=== PATIENT | female | born 2005 | race Caucasian/White ===

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

== ENCOUNTER 2023-08-17 11:14 | Emergency (ER) | payer OTHER ==
[2023-08-17 11:57] VITALS: TEMP 97
[2023-08-17 12:17] LABS: Glucose,Whole Blood 88 mg/dL (70-110)
[2023-08-17 12:22] VITALS: PULSE 86; RESP 18
[2023-08-17] MEDS ORDERED: SODIUM CHLORIDE 0.9% 1,000 ML IV ONE (12:46)
[2023-08-17 13:06] LABS: Basophils % (A) 0 %; Eosinophils % (A) 0 %; HGB 11.3 gm/dL (11.4-16.0); Lymphocytes # (A) 1.8 k/uL (1.0-4.8); Lymphocytes % (A) 13 %; MCHC 34.4 g/dL (31.0-37.0); MCV 87.2 fL (80.0-100.0); Mean Platelet Volume 8.4; Monocytes # (A) 0.5 k/uL (0-1.0); Monocytes % (A) 4 %; Neutrophils # (A) 11.2 k/uL (1.3-7.7); Neutrophils % (A) 81 %; Platelet Count 250 k/uL (150-450); RBC 3.78 m/uL (3.80-5.40); RDW 13.2 % (11.5-15.5); WBC 13.9 k/uL (4.0-11.0)
[2023-08-17 13:19] LABS: ALT 26 U/L (4-34); AST 32 U/L (14-36); African American GFR (CKD) >90 (>60 ml/min/1.73 sqM); Albumin 3.4 g/dL (3.5-5.0); Alkaline Phosphatase 157 U/L (38-126); Anion Gap 12 mmol/L; Blood Urea Nitrogen 9 mg/dL (7-17); Calcium 8.8 mg/dL (8.4-10.2); Carbon Dioxide 19 mmol/L (22-30); Chloride 105 mmol/L (98-107); Glucose 80 mg/dL (74-99); Non-African American GFR(CKD) >90 (>60 ml/min/1.73 sqM); Potassium 4.2 mmol/L (3.5-5.1); Sodium 136 mmol/L (137-145); Total Bilirubin 0.4 mg/dL (0.2-1.3); Total Protein 6.6 g/dL (6.3-8.2)
--- NOTE | 2023-08-17 13:36 | ED ---
General Adult HPI - General Chief complaint: Headache Stated complaint: 30wks preg-vision loss Time Seen by Provider: 08/17/23 12:29 Source: patient, RN notes reviewed, old records reviewed Mode of arrival: ambulatory Limitations: no limitations - History of Present Illness Initial comments: 18-year-old female presenting for evaluation of headache, nausea vomiting. Patient is currently approximately 30 weeks . She's had no complicating features of this . She is feeling the baby move. Patient does report some blurred vision and states she's had symptoms very similar to this with the with previous and has had it several times during this . - Related Data Home Medications Medication Instructions Recorded Confirmed Aspirin [Adult Low Dose Aspirin EC] 81 mg PO DAILY 12/03/21 02/17/22 Pnv No.95/Ferrous Fum/Folic AC 1 tab PO DAILY 12/03/21 02/17/22 [ Multivitamin Tablet] Allergies Allergy/AdvReac Type Severity Reaction Status Date / Time No Known Allergies Allergy Verified 08/17/23 11:34 Review of Systems ROS Statement: Those systems with pertinent positive or pertinent negative responses have been documented in the HPI. ROS Other: All systems not noted in ROS Statement are negative. Past Medical History Past Medical History: No Reported History History of Any Multi-Drug Resistant Organisms: None Reported Past Surgical History: No Surgical Hx Reported Past Anesthesia/Blood Transfusion Reactions: No Reported Reaction Past Psychological History: No Psychological Hx Reported Smoking Status: Never smoker Past Alcohol Use History: None Reported Past Drug Use History: None Reported - Past Family History Mother Family Medical History: No Reported History General Exam Limitations: no limitations General appearance: alert, in no apparent distress Head exam: Present: atraumatic, normocephalic Eye exam: Present: normal appearance, PERRL ENT exam: Present: normal exam Neck exam: Present: normal inspection Respiratory exam: Present: normal lung sounds bilaterally. Absent: respiratory distress, wheezes Cardiovascular Exam: Present: regular rate, normal rhythm GI/Abdominal exam: Present: soft. Absent: distended, tenderness Extremities exam: Present: normal inspection, normal capillary refill. Absent: pedal edema Neurological exam: Present: alert, oriented X3, CN II-XII intact. Absent: motor sensory deficit Psychiatric exam: Present: normal affect, normal mood Skin exam: Present: warm, dry, intact. Absent: cyanosis, diaphoretic Course Vital Signs 08/17/23 08/17/23 11:34 12:10 Temperature 97 F L Pulse Rate 84 86 Respiratory 16 18 Rate Blood Pressure 108/62 107/62 O2 Sat by Pulse 97 96 Oximetry - Reevaluation(s) Reevaluation #1: 08/17/23 14:48 Patient states blurry vision has resolved. Headache is improved. Patient overall feeling better she is able to eat in the emergency department. Medical Decision Making - Medical Decision Making Was pt. sent in by a medical professional or institution (, ANGÉLICA, SENIOR ANALYST DEVELOPER, urgent care, hospital, or group home...) When possible be specific @ -No Did you speak to anyone other than the patient for history (EMS, parent, family, police, friend...)? What history was obtained from this source @ -No Did you review nursing and triage notes (agree or disagree)? Why? @ -I reviewed and agree with nursing and triage notes Were old charts reviewed (outside hosp., previous admission, EMS record, old EKG, old radiological studies, urgent care reports/EKG's, group home records)? Report findings @ -No old charts were reviewed Differential Diagnosis (chest pain, altered mental status, abdominal pain women, abdominal pain men, vaginal bleeding, weakness, fever, dyspnea, syncope, headache, dizziness, GI bleed, back pain, seizure, CVA, palpatations, mental health, musculoskeletal)? @ Differential Headache: Migraine, tension, cluster, carbon monoxide, central venous thrombosis, pension karma temporal arteritis, acute closure glaucoma, intercranial hemorrhage, mastoiditis, sinusitis, head injury, this is not meant to be an all-inclusive list. EKG interpreted by me (3pts min.). @ -As above X-rays interpreted by me (1pt min.). @ -None done CT interpreted by me (1pt min.). @ -None done U/S interpreted by me (1pt. min.). @ -None done What testing was considered but not performed or refused? (CT, X-rays, U/S, labs)? Why? @ -None What meds were considered but not given or refused? Why? @ -None Did you discuss the management of the patient with other professionals (professionals i.e. , ANGÉLICA, SENIOR ANALYST DEVELOPER, lab, RT, psych nurse, clinical social work aide, mechanic driver, teacher, compliance officer, mental health case manager)? Give summary @ -No Was smoking cessation discussed for >3mins.? @ -No Was critical care preformed (if so, how long)? @ -No Were there social determinants of health that impacted care today? How? (Homelessness, low income, unemployed, alcoholism, drug addiction, transportation, low edu. Level, literacy, decrease access to med. care, prison, rehab)? @ -No Was there de-escalation of care discussed even if they declined (Discuss DNR or withdrawal of care, Hospice)? DNR status @ -No What co-morbidities impacted this encounter? (DM, HTN, Smoking, COPD, CAD, Cancer, CVA, ARF, Chemo, Hep., AIDS, mental health diagnosis, sleep apnea, morbid obesity)? @ -None Was patient admitted / discharged? Hospital course, mention meds given and route, prescriptions, significant lab abnormalities, going to OR and other pertinent info. @ -18-year-old female with headache, nausea vomiting. Patient afebrile with stable vitals. Patient had taken Tylenol prior to arrival. Given additional dose emergency department as well as IV fluids. She has a mild leukocytosis at 13. Patient states she's had several episodes throughout this of headache and nausea vomiting. Other laboratory testing is unremarkable. Viral swab negative. Undiagnosed new problem with uncertain prognosis? @ -No Drug Therapy requiring intensive monitoring for toxicity (Heparin, Nitro, Insulin, Cardizem)? @ -No Were any procedures done? @ -No Diagnosis/symptom? @ -[Headache Acute, or Chronic, or Acute on Chronic? @ -[Acute on chronic Uncomplicated (without systemic symptoms) or Complicated (systemic symptoms)? @ -default Side effects of treatment? @ -No Exacerbation, Progression, or Severe Exacerbation? @ -No Poses a threat to life or bodily function? How? (Chest pain, [place], [place], pneumonia, PE, COPD, DKA, ARF, appy, cholecystitis, CVA, Diverticulitis, Homicidal, Suicidal, threat to staff... and all critical care pts) @ -Low risk at this time - Lab Data Result diagrams: 08/17/23 12:59 08/17/23 12:59 Lab Results 01/05/24 01/05/24 01/05/24 Range/Units 12:16 12:59 12:59 WBC 13.9 H (4.0-11.0) k/uL RBC 3.78 L (3.80-5.40) m/uL Hgb 11.3 L (11.4-16.0) gm/dL Hct 33.0 L (34.0-46.0) % MCV 87.2 (80.0-100.0) fL MCH 30.0 (25.0-35.0) pg MCHC 34.4 (31.0-37.0) g/dL RDW 13.2 (11.5-15.5) % Plt Count 250 (150-450) k/uL MPV 8.4 Neutrophils % 81 % Lymphocytes % 13 % Monocytes % 4 % Eosinophils % 0 % Basophils % 0 % Neutrophils # 11.2 H (1.3-7.7) k/uL Lymphocytes # 1.8 (1.0-4.8) k/uL Monocytes # 0.5 (0-1.0) k/uL Eosinophils # 0.0 (0-0.7) k/uL Basophils # 0.0 (0-0.2) k/uL Sodium (137-145) mmol/L Potassium (3.5-5.1) mmol/L Chloride (98-107) mmol/L Carbon Dioxide (22-30) mmol/L Anion Gap mmol/L BUN (7-17) mg/dL Creatinine (0.52-1.04) mg/dL Est GFR (CKD-EPI)AfAm (>60 ml/min/1.73 sqM) Est GFR (CKD-EPI)NonAf (>60 ml/min/1.73 sqM) Glucose (74-99) mg/dL POC Glucose (mg/dL) 88 (70-110) mg/dL POC Glu Net Fisher ID Liseth Nettles Calcium (8.4-10.2) mg/dL Total Bilirubin (0.2-1.3) mg/dL AST (14-36) U/L ALT (4-34) U/L Alkaline Phosphatase (38-126) U/L Total Protein (6.3-8.2) g/dL Albumin (3.5-5.0) g/dL Urine Color Colorless Urine Appearance Clear (Clear) Urine pH 7.0 (5.0-8.0) Ur Specific [place] 1.008 (1.001-1.035) Urine Protein Negative (Negative) Urine Glucose (UA) Negative (Negative) Urine Ketones Trace H (Negative) Urine Blood Negative (Negative) Urine Nitrite Negative (Negative) Urine Bilirubin Negative (Negative) Urine Urobilinogen <2.0 (<2.0) mg/dL Ur Leukocyte Esterase Small H (Negative) Urine RBC 1 (0-5) /hpf Urine WBC 2 (0-5) /hpf Ur Squamous Epith Cells 4 (0-4) /hpf Urine Bacteria Occasional H (None) /hpf Urine Mucus Occasional H (None) /hpf Urine Yeast (Budding) Occasional H (None) /hpf Influenza Type A (PCR) (Not Detectd) Influenza Type B (PCR) (Not Detectd) RSV (PCR) (Not Detectd) SARS-CoV-2 (PCR) (Not Detectd) 08/17/23 08/17/23 Range/Units 12:59 12:59 WBC (4.0-11.0) k/uL RBC (3.80-5.40) m/uL Hgb (11.4-16.0) gm/dL Hct (34.0-46.0) % MCV (80.0-100.0) fL MCH (25.0-35.0) pg MCHC (31.0-37.0) g/dL RDW (11.5-15.5) % Plt Count (150-450) k/uL MPV Neutrophils % % Lymphocytes % % Monocytes % % Eosinophils % % Basophils % % Neutrophils # (1.3-7.7) k/uL Lymphocytes # (1.0-4.8) k/uL Monocytes # (0-1.0) k/uL Eosinophils # (0-0.7) k/uL Basophils # (0-0.2) k/uL Sodium 136 L (137-145) mmol/L Potassium 4.2 (3.5-5.1) mmol/L Chloride 105 (98-107) mmol/L Carbon Dioxide 19 L (22-30) mmol/L Anion Gap 12 mmol/L BUN 9 (7-17) mg/dL Creatinine 0.30 L (0.52-1.04) mg/dL Est GFR (CKD-EPI)AfAm >90 (>60 ml/min/1.73 sqM) Est GFR (CKD-EPI)NonAf >90 (>60 ml/min/1.73 sqM) Glucose 80 (74-99) mg/dL POC Glucose (mg/dL) (70-110) mg/dL POC Glu Net Fisher ID Calcium 8.8 (8.4-10.2) mg/dL Total Bilirubin 0.4 (0.2-1.3) mg/dL AST 32 (14-36) U/L ALT 26 (4-34) U/L Alkaline Phosphatase 157 H (38-126) U/L Total Protein 6.6 (6.3-8.2) g/dL Albumin 3.4 L (3.5-5.0) g/dL Urine Color Urine Appearance (Clear) Urine pH (5.0-8.0) Ur Specific [place] (1.001-1.035) Urine Protein (Negative) Urine Glucose (UA) (Negative) Urine Ketones (Negative) Urine Blood (Negative) Urine Nitrite (Negative) Urine Bilirubin (Negative) Urine Urobilinogen (<2.0) mg/dL Ur Leukocyte Esterase (Negative) Urine RBC (0-5) /hpf Urine WBC (0-5) /hpf Ur Squamous Epith Cells (0-4) /hpf Urine Bacteria (None) /hpf Urine Mucus (None) /hpf Urine Yeast (Budding) (None) /hpf Influenza Type A (PCR) Not Detected (Not Detectd) Influenza Type B (PCR) Not Detected (Not Detectd) RSV (PCR) Not Detected (Not Detectd) SARS-CoV-2 (PCR) Not Detected (Not Detectd) Disposition Clinical Impression: Headache Disposition: HOME SELF-CARE Condition: Good Instructions (If sedation given, give patient instructions): Acute Headache (ED) Is patient prescribed a controlled substance at d/c from ED?: No Referrals: None,Stated [Primary Care Provider] - 1-2 days Renetta Felix MD [STAFF PHYSICIAN] - 1-2 days Time of Disposition: 14:47
[2023-08-17] MEDS ORDERED: ACETAMINOPHEN TAB 325 MG TAB PO STA (14:06)
[2023-08-17 14:07] LABS: Appearance,Urine Clear (Clear); Bacteria,Urine Occasional /hpf; Bilirubin,Urine Negative (Negative); Blood,Urine Negative (Negative); Budding Yeast,Urine Occasional /hpf; Color,Urine Colorless; Glucose,Urine (UA) Negative (Negative); Ketones,Urine Trace (Negative); Leukocyte Esterase,Urine Small (Negative); Mucus,Urine Occasional /hpf; Nitrite,Urine Negative (Negative); Protein,Urine Negative (Negative); RBC,Urine 1 /hpf (0-5); Specific Gravity,Urine 1.008 (1.001-1.035); Squamous Epithelial Cell,Urine 4 /hpf (0-4); Urobilinogen,Urine <2.0 mg/dL (<2.0); WBC,Urine 2 /hpf (0-5)
[2023-08-17 15:33] VITALS: BP 119/69
== END 2023-08-17 15:18 | disposition home or self-care (01) ==
LOC: EC 11:14
DX: O26.893 Other specified pregnancy related conditions, third trimester (principal); R51.9 Headache, unspecified; O99.113 Other diseases of the blood and blood-forming organs and certain disorders involving the immune mechanism complicating pregnancy, third trimester; D72.829 Elevated white blood cell count, unspecified; Z20.822 Contact with and (suspected) exposure to COVID-19; Z3A.30 30 weeks gestation of pregnancy
CPT/HCPCS: 36415; 80053; 81001; 85025; 87636; 96360; 99284

== ENCOUNTER 2023-10-22 06:00 | Inpatient (IN) | payer OTHER ==
[2023-10-22] MEDS ORDERED: OXYTOCIN 10 UNIT/ML 1 ML VIAL IM PRN (06:20)
[2023-10-22] MEDS ORDERED: CARBOPROST TROMETHAMINE 250 MCG/ML 1 ML AMP IM PRN (06:20)
[2023-10-22] MEDS ORDERED: TRANEXAMIC 1,000 MG/100ML-NACL 1,000 MG in EMPTY BAG 1 BAG IV PRN (06:20)
[2023-10-22] MEDS ORDERED: METHYLERGONOVINE 0.2 MG/ML 1 ML AMP IM PRN (06:20)
[2023-10-22] MEDS ORDERED: miSOPROStoL 200 MCG TAB PO PRN (06:20)
[2023-10-22] MEDS ORDERED: TERBUTALINE 1 MG/ML VIAL SQ PRN (06:20)
[2023-10-22] MEDS ORDERED: LIDOCAINE 0.5% (PF) 5 MG/ML (50 ML SDV) SQ PRN (06:20)
[2023-10-22 06:30] VITALS: RESP 16
[2023-10-22] MEDS: LACTATED RINGERS 1,000 ML IV SCH (06:42)
[2023-10-22] MEDS: OXYTOCIN 30 UNITS/500 ML NS 30 UNIT in SALINE 1 500ML.BAG IV SCH (06:48)
[2023-10-22 07:05] LABS: Basophils % (A) 0 %; Eosinophils # (A) 0.1 k/uL (0-0.7); Eosinophils % (A) 1 %; HCT 30.6 % (34.0-46.0); HGB 10.1 gm/dL (11.4-16.0); Hypochromasia Slight; Lymphocytes # (A) 2.3 k/uL (1.0-4.8); Lymphocytes % (A) 28 %; MCH 26.7 pg (25.0-35.0); MCHC 32.8 g/dL (31.0-37.0); Mean Platelet Volume 9.2; Monocytes # (A) 0.5 k/uL (0-1.0); Monocytes % (A) 6 %; Neutrophils # (A) 5.2 k/uL (1.3-7.7); Neutrophils % (A) 62 %; Platelet Count 247 k/uL (150-450); Poikilocytosis Slight; RBC 3.77 m/uL (3.80-5.40); WBC 8.3 k/uL (4.0-11.0)
[2023-10-22 07:28] LABS: MCV 81.2 fL (80.0-100.0)
--- NOTE | 2023-10-22 09:31 | P.HPOB ---
History of Present Illness H&P Date: 10/22/23 Chief Complaint: Induction of labor Ms. Boyer is a 18 year old at 39 weeks and 1 day with EDC of 10/28/2023 by LMP consistent with 8 week US who presents for scheduled elective induction of labor. Her has been essentially uncomplicated. The fetus measured in the 33%ile at 32 week growth US. Obstetric history: 1 FTVD, complicated by GDM work-up: blood type O positive, antibody negative, rubella non-immune, VDRL non-reactive, HBsAg negative, HIV negative, HCV Ab negative, gonorrhea negative, chlamydia negative, 1 hour GTT within normal limits, GBS negative. Past Medical History Past Medical History: No Reported History History of Any Multi-Drug Resistant Organisms: None Reported Past Surgical History: No Surgical Hx Reported Past Anesthesia/Blood Transfusion Reactions: No Reported Reaction Past Psychological History: No Psychological Hx Reported Smoking Status: Never smoker Past Alcohol Use History: None Reported Past Drug Use History: None Reported - Past Family History Mother Family Medical History: No Reported History Medications and Allergies Home Medications Medication Instructions Recorded Confirmed Type Pnv No.95/Ferrous Fum/Folic AC 1 tab PO DAILY 12/03/21 10/22/23 History [ Multivitamin Tablet] Allergies Allergy/AdvReac Type Severity Reaction Status Date / Time No Known Allergies Allergy Verified 08/17/23 11:34 Exam Vital Signs Temp Pulse Resp BP Pulse Ox 10/22/23 06:19 96.6 F L 100 16 121/75 97 Intake and Output 10/21/23 10/22/23 10/22/23 22:59 06:59 14:59 Other: Weight 88.451 kg Focused physical exam is performed. This is a healthy-appearing in no apparent distress. Breathing is non-labored. Abdomen is gravid and non-tender. Cervical exam is 2 cm, 60 effacement, -3 station. AROM is undertaken with clear fluid noted. Extremities non-tender and non-edematous. heart tones are Category I and tocometer is graphing contractions every 2-4 minutes. Results Result Diagrams: 10/22/23 06:39 Abnormal Lab Results - Last 24 Hours (Table) 10/22/23 Range/Units 06:39 RBC 3.77 L (3.80-5.40) m/uL Hgb 10.1 L (11.4-16.0) gm/dL Hct 30.6 L (34.0-46.0) % Assessment and Plan Assessment: 18 year old at 39 weeks and 1 day presenting for elective induction of labor Plan: Admit, clear liquid diet, pitocin per protocol, continuous EFM and tocometer, close monitoring of patient. Anticipate vaginal delivery. Time with Patient: Less than 30
[2023-10-22] MEDS ORDERED: ROPIVACAINE 5 MG/ML 30 ML VIAL ONE (16:20)
[2023-10-22] MEDS ORDERED: fentaNYL (PF) 50 MCG/ML 5 ML AMP ONE (16:20)
[2023-10-22] MEDS ORDERED: SODIUM CHLORIDE 0.9% 250 ML BAG ONE (16:20)
[2023-10-22] MEDS ORDERED: LANOLIN CREAM 1 GM TUBE TOPICAL PRN (21:42)
[2023-10-22] MEDS ORDERED: ZOLPIDEM 5 MG TAB PO PRN (21:42)
[2023-10-22] MEDS ORDERED: HYDROCORTISONE 2.5% RECTAL CREAM 30 GM TUBE RECTAL PRN (21:42)
[2023-10-22] MEDS ORDERED: diphenhydrAMINE 50 MG/ML 1 ML VIAL IVP PRN ×2 (21:42)
[2023-10-22] MEDS ORDERED: SIMETHICONE 80 MG CHEWABLE PO PRN (21:42)
[2023-10-22] MEDS ORDERED: diphenhydrAMINE 50 MG CAP PO PRN (21:42)
[2023-10-22] MEDS ORDERED: diphenhydrAMINE 25 MG CAP PO PRN (21:42)
[2023-10-22] MEDS ORDERED: BENZOCAINE/MENTHOL SPRAY 1 GM/SPRAY AEROSOL TOPICAL PRN (21:42)
--- NOTE | 2023-10-22 21:42 | P.PROBDLV ---
Vaginal Delivery Note - . Vaginal Delivery Note: DATE OF SERVICE: 10/22/2023 PROCEDURE: Normal Vaginal Delivery ATTENDING: Dr. Renetta Felix MD ESTIMATED BLOOD LOSS: 300 mL FINDINGS: VFI, Apgars 9/9. Weight 7 pounds and 3 ounces (3260 grams) PROCEDURE: Ms. Boyer is a 18 year old at 39 weeks and 1 day presenting to labor and delivery for elective induction of labor. The has been uncomplicated. For further details, please review the admitting H&P. Pitocin was titrated per protocol. AROM was performed at 722 revealing clear amniotic fluid. She received epidural anesthesia per her request. The patient was completely dilated at 2105. She pushed very effectively with Category II heart tones. A viable female was delivered over an intact perineum at 2122. The was placed on the maternal abdomen and bulb suctioned. The was noted to be spontaneously crying. Cord was clamped and cut after a 30-second delay. The was handed off to the pediatric team. Placenta was delivered whole with gentle cord traction at 2127. Oxytocin was started to facilitate uterine tone. Uterine fundus was found to be firm and below the umbilicus upon fundal massage. Thorough examination of the cervix, vagina, periurethral area, and perineum revealed no lacerations. The patient is stable and allowed to begin the bonding process.
[2023-10-22] MEDS: ROPIVACAINE 225 MG, fentaNYL (PF). 450 MCG in SODIUM CHLORIDE 0.9% 171 ML EPIDURAL ONE (22:30)
[2023-10-23 06:52] LABS: Basophils % (A) 0 %; Eosinophils % (A) 0 %; HCT 33.5 % (34.0-46.0); HGB 10.8 gm/dL (11.4-16.0); Hypochromasia Slight; Lymphocytes # (A) 2.1 k/uL (1.0-4.8); Lymphocytes % (A) 17 %; MCH 26.4 pg (25.0-35.0); MCHC 32.1 g/dL (31.0-37.0); MCV 82.2 fL (80.0-100.0); Mean Platelet Volume 9.5; Monocytes # (A) 0.6 k/uL (0-1.0); Monocytes % (A) 5 %; Neutrophils # (A) 9.3 k/uL (1.3-7.7); Neutrophils % (A) 75 %; Platelet Count 235 k/uL (150-450); Poikilocytosis Slight; RBC 4.07 m/uL (3.80-5.40); RDW 14.1 % (11.5-15.5); WBC 12.5 k/uL (4.0-11.0)
[2023-10-23] MEDS: IBUPROFEN 600 MG TAB PO PRN (07:42)
[2023-10-23] MEDS: SENNOSIDES-DOCUSATE SODIUM 1 EACH TAB PO SCH (07:42)
--- NOTE | 2023-10-23 08:40 | P.DS ---
Providers Date of admission: 10/22/23 06:06 Expected date of discharge: 10/23/23 Attending physician: Renetta Felix MD Primary care physician: Stated None Hospital Course: Ms. Boyer is a 18 year old now PPD#1 s/p normal vaginal delivery after elective induction of labor at 39 weeks and 1 day. She is doing well this morning and desires discharge home. The patient is doing well this morning and had no acute events overnight. She has no complaints this morning. She reports minimal lochia, passing flatus, voiding without difficulty, ambulating, and eating/drinking without nausea or vomiting. Infant doing well at bedside. She denies chest pain, shortness of breathing, fevers, or chills overnight. She denies pain or swelling in the legs. restrictions are reviewed with the patient including pelvic rest for 6 weeks. The patient is encouraged to call the office if she experiences any heavy bleeding, foul-smelling discharge, breast complaints, or any if she has any other concerns. She will follow up in t office in 6 weeks for postoperative exam. She requests Tylenol sent to her pharmacy for pain. All questions are answered. Assessment: 18 year old now PPD#1 s/p normal vaginal delivery Patient Condition at Discharge: Good Plan - Discharge Summary New Discharge Prescriptions: New Acetaminophen Tab [Tylenol] 650 mg PO Q6H PRN #30 tab PRN Reason: Mild Pain (Scale 1 To 3) No Action Pnv No.95/Ferrous Fum/Folic AC [ Multivitamin Tablet] 1 tab PO DAILY Discharge Medication List Pnv No.95/Ferrous Fum/Folic AC [ Multivitamin Tablet] 1 tab PO DAILY 12/03/21 [History] Acetaminophen Tab [Tylenol] 650 mg PO Q6H PRN #30 tab 10/23/23 [Rx] Follow up Appointment(s)/Referral(s): Renetta Felix MD [STAFF PHYSICIAN] - 6 Weeks Activity/Diet/Wound Care/Special Instructions: Instructions 1. Do not begin any exercise program for 3 weeks. 2. Do not resume sexual relations for 6 weeks or longer if uncomfortable. 3. You may take tub baths or showers at any time. 4. You may use tampons if desired after 6 weeks. 5. Keep any areas repaired with stitches clean and dry. 6. If you are not nursing, wear a good fitting, supportive bra during the day and limit fluid intake for at least 1 week to prevent breast engorgement. 7. Call the office, , within the next week to make appointment for your 6 week checkup if it has not already been made. 8. Report any of the following occurrences to the doctor promptly: a. Heavy, excessive bleeding b. Chills, fever c. Burning or frequency of urination d. Pain or redness and breasts if nursing e. Increasing pain or swelling of vulva (stitches). In addition to the above instructions, the following additional should be followed: 1. No heavy lifting or straining (exercising) until after 6 week checkup. 2. Keep abdominal incision clean and dry: You may wear a dressing if more comfortable. 3. Make office appointment for 2 weeks after delivery date. Discharge Disposition: HOME SELF-CARE
[2023-10-23] MEDS: ACETAMINOPHEN TAB 325 MG TAB PO PRN (13:39)
[2023-10-23 17:00] VITALS: BP 107/71; PULSE 71; TEMP 98.5
== END 2023-10-23 22:30 | disposition home or self-care (01) | DRG 560 ==
LOC: 4FBP 06:06
PROVIDERS: ADMIT Obstetrics & Gynecology; ATTEND Obstetrics & Gynecology
PROC: 3E033VJ Introduction of Other Hormone into Peripheral Vein, Percutaneous Approach (ICD-10-PCS; principal; 2023-10-22)
PROC: 10907ZC Drainage of Amniotic Fluid, Therapeutic from Products of Conception, Via Natural or Artificial Opening (ICD-10-PCS; principal; 2023-10-22)
PROC: 10E0XZZ Delivery of Products of Conception, External Approach (ICD-10-PCS; principal; 2023-10-22)
DX: O80 Encounter for full-term uncomplicated delivery (principal); Z3A.39 39 weeks gestation of pregnancy; Z37.0 Single live birth; Z86.32 Personal history of gestational diabetes
CPT/HCPCS: 85025; 86850; 86900; 86901

== ENCOUNTER 2024-04-17 14:00 | Emergency (ER) | payer OTHER ==
[2024-04-17 14:07] VITALS: RESP 18; TEMP 97.7
--- NOTE | 2024-04-17 15:08 | ED ---
General Adult HPI - General Chief complaint: Neuro Symptoms/Deficit Stated complaint: R eye issue, R hand numbness Time Seen by Provider: 04/17/24 14:20 Source: patient, RN notes reviewed Mode of arrival: ambulatory Limitations: no limitations - History of Present Illness Initial comments: 18-year-old female with a past medical history of POTS presents emergency department chief complaint of headache, blurry vision, intermittent paresthesias. Patient states that symptoms began this morning and she will experience a headache accompanied by visual changes and numbness and tingling of her right upper extremity. Patient states that she experienced these type of symptoms during her however symptoms resolved after giving in October. She denies visiting with a neurologist for the symptoms. She denies chest pain, shortness of breath, dizziness, lightheadedness. States that she feels nauseous. Denies previous medical history of DVT, PE, blood clotting disorders, recent prolonged travel, recent surgeries, estrogen use. - Related Data Home Medications Medication Instructions Recorded Confirmed Pnv No.95/Ferrous Fum/Folic AC 1 tab PO DAILY 12/03/21 10/22/23 [ Multivitamin Tablet] Previous Rx's Medication Instructions Recorded Acetaminophen Tab [Tylenol] 650 mg PO Q6H PRN #30 tab 10/23/23 Ketorolac [Toradol] 10 mg PO Q8HR #15 tab 04/17/24 Allergies Allergy/AdvReac Type Severity Reaction Status Date / Time No Known Allergies Allergy Verified 04/17/24 14:07 Review of Systems ROS Statement: Those systems with pertinent positive or pertinent negative responses have been documented in the HPI. ROS Other: All systems not noted in ROS Statement are negative. Past Medical History Past Medical History: No Reported History Additional Past Medical History / Comment(s): POTS History of Any Multi-Drug Resistant Organisms: None Reported Past Surgical History: No Surgical Hx Reported Past Anesthesia/Blood Transfusion Reactions: No Reported Reaction Past Psychological History: No Psychological Hx Reported Smoking Status: Never smoker Past Alcohol Use History: None Reported Past Drug Use History: None Reported - Past Family History Mother Family Medical History: No Reported History General Exam Limitations: no limitations General appearance: alert, in no apparent distress Head exam: Present: atraumatic, normocephalic, normal inspection Eye exam: Present: normal appearance, PERRL, EOMI. Absent: scleral icterus, conjunctival injection, periorbital swelling ENT exam: Present: normal exam, mucous membranes moist Neck exam: Present: normal inspection. Absent: tenderness, meningismus, lymphadenopathy Respiratory exam: Present: normal lung sounds bilaterally. Absent: respiratory distress, wheezes, rales, rhonchi, stridor Cardiovascular Exam: Present: regular rate, normal rhythm, normal heart sounds. Absent: systolic murmur, diastolic murmur, rubs, gallop, clicks GI/Abdominal exam: Present: soft, normal bowel sounds. Absent: distended, tenderness, guarding, rebound, rigid Extremities exam: Present: normal inspection, full ROM, normal capillary refill. Absent: tenderness, pedal edema, joint swelling, calf tenderness Back exam: Present: normal inspection Neurological exam: Present: alert, oriented X3, CN II-XII intact Skin exam: Present: warm, dry, intact, normal color. Absent: rash Course Vital Signs 04/17/24 04/17/24 14:03 15:06 Temperature 97.7 F Pulse Rate 84 81 Respiratory 18 18 Rate Blood Pressure 112/73 111/64 O2 Sat by Pulse 98 98 Oximetry Medical Decision Making - Medical Decision Making Was pt. sent in by a medical professional or institution (, PA, SELLING SPECIALIST, urgent care, hospital, or fdc...) When possible be specific @ -No Did you speak to anyone other than the patient for history (EMS, parent, family, police, friend...)? What history was obtained from this source @ -No Did you review nursing and triage notes (agree or disagree)? Why? @ -I reviewed and agree with nursing and triage notes Were old charts reviewed (outside hosp., previous admission, EMS record, old EKG, old radiological studies, urgent care reports/EKG's, fdc records)? Report findings @ -No old charts were reviewed Differential Diagnosis (chest pain, altered mental status, abdominal pain women, abdominal pain men, vaginal bleeding, weakness, fever, dyspnea, syncope, headache, dizziness, GI bleed, back pain, seizure, CVA, palpatations, mental h ealth, musculoskeletal)? @ -Differential Headache: Migraine, tension, cluster, carbon monoxide, central venous thrombosis, pension karma temporal arteritis, acute closure glaucoma, intercranial hemorrhage, mastoiditis, sinusitis, head injury, this is not meant to be an all-inclusive list. EKG interpreted by me (3pts min.). @ -None X-rays interpreted by me (1pt min.). @ -None done CT interpreted by me (1pt min.). @ -CT of the brain without contrast no acute cranial abnormality noted. U/S interpreted by me (1pt. min.). @ -None done What testing was considered but not performed or refused? (CT, X-rays, U/S, labs)? Why? @ -None What meds were considered but not given or refused? Why? @ -None Did you discuss the management of the patient with other professionals (professionals i.e. DrTyler, PA, SELLING SPECIALIST, lab, RT, psych nurse, director social service, shoe repairer, teacher, botanical technical officer, correctional case manager)? Give summary @ -No Was smoking cessation discussed for >3mins.? @ -No Was critical care preformed (if so, how long)? @ -No Were there social determinants of health that impacted care today? How? (Homelessness, low income, unemployed, alcoholism, drug addiction, transportation, low edu. Level, literacy, decrease access to med. care, alf, rehab)? @ -No Was there de-escalation of care discussed even if they declined (Discuss DNR or withdrawal of care, Hospice)? DNR status @ -No What co-morbidities impacted this encounter? (DM, HTN, Smoking, COPD, CAD, Cancer, CVA, ARF, Chemo, Hep., AIDS, mental health diagnosis, sleep apnea, morbid obesity)? @ -None Was patient admitted / discharged? Hospital course, mention meds given and route, prescriptions, significant lab abnormalities, going to OR and other pertinent info. @ -18-year-old female with headache and neurological symptoms. On physical examination patient is resting comfortably no signs acute distress, neurological examination no deficits. She is provided with fluids and Tylenol pending labs and CT imaging. Patient did agree with this plan. CBC, CMP no acute findings. Urinalysis no signs of infection, hCG negative. On reevaluation, patient states that headache his still persistent is provided with a dose of Toradol and patient states that she would like to be discharged at this time. Recommend that she is follows up with her primary care provider for further evaluation. She is provided with a prescription for Toradol to take as needed for intermittent migraine relief. All questions answered at bedside and strict return parameters discussed with the patient she is verbalized understanding. Case discussed with Dr. Xiao Undiagnosed new problem with uncertain prognosis? @ -No Drug Therapy requiring intensive monitoring for toxicity (Heparin, Nitro, Insulin, Cardizem)? @ -No Were any procedures done? @ -No Diagnosis/symptom? @ -migraine headache Acute, or Chronic, or Acute on Chronic? @ -Acute Uncomplicated (without systemic symptoms) or Complicated (systemic symptoms)? @ -Uncomplicated Side effects of treatment? @ -No Exacerbation, Progression, or Severe Exacerbation? @ -No Poses a threat to life or bodily function? How? (Chest pain, USA, NM, pneumonia, PE, COPD, DKA, ARF, appy, cholecystitis, CVA, Diverticulitis, Homicidal, Suicidal, threat to staff... and all critical care pts) @ -No - Lab Data Result diagrams: 04/17/24 15:31 04/17/24 15:31 Lab Results 04/17/24 04/17/24 04/17/24 Range/Units 15:31 15:31 15:31 WBC 12.7 H (4.0-11.0) k/uL RBC 4.67 (3.80-5.40) m/uL Hgb 13.2 (11.4-16.0) gm/dL Hct 40.0 (34.0-46.0) % MCV 85.7 (80.0-100.0) fL MCH 28.3 (25.0-35.0) pg MCHC 33.1 (31.0-37.0) g/dL RDW 12.8 (11.5-15.5) % Plt Count 276 (150-450) k/uL MPV 8.5 Neutrophils % 77 % Lymphocytes % 17 % Monocytes % 4 % Eosinophils % 0 % Basophils % 0 % Neutrophils # 9.8 H (1.3-7.7) k/uL Lymphocytes # 2.1 (1.0-4.8) k/uL Monocytes # 0.5 (0-1.0) k/uL Eosinophils # 0.0 (0-0.7) k/uL Basophils # 0.0 (0-0.2) k/uL Sodium (137-145) mmol/L Potassium (3.5-5.1) mmol/L Chloride (98-107) mmol/L Carbon Dioxide (22-30) mmol/L Anion Gap mmol/L BUN (7-17) mg/dL Creatinine (0.52-1.04) mg/dL Est GFR (CKD-EPI)AfAm (>60 ml/min/1.73 sqM) Est GFR (CKD-EPI)NonAf (>60 ml/min/1.73 sqM) Glucose (74-99) mg/dL Calcium (8.4-10.2) mg/dL Magnesium (1.6-2.3) mg/dL Total Bilirubin (0.2-1.3) mg/dL AST (14-36) U/L ALT (4-34) U/L Alkaline Phosphatase (38-126) U/L Total Protein (6.3-8.2) g/dL Albumin (3.5-5.0) g/dL Urine Color Yellow Urine Appearance Cloudy H (Clear) Urine pH 6.5 (5.0-8.0) Ur Specific Perry 1.030 (1.001-1.035) Urine Protein Negative (Negative) Urine Glucose (UA) Negative (Negative) Urine Ketones 1+ H (Negative) Urine Blood Negative (Negative) Urine Nitrite Negative (Negative) Urine Bilirubin Negative (Negative) Urine Urobilinogen <2.0 (<2.0) mg/dL Ur Leukocyte Esterase Trace H (Negative) Urine RBC 2 (0-5) /hpf Urine WBC 3 (0-5) /hpf Ur Squamous Epith Cells 11 H (0-4) /hpf Urine Mucus Many H (None) /hpf Urine HCG, Qual Not Detected (Not Detectd) 04/17/24 Range/Units 15:31 WBC (4.0-11.0) k/uL RBC (3.80-5.40) m/uL Hgb (11.4-16.0) gm/dL Hct (34.0-46.0) % MCV (80.0-100.0) fL MCH (25.0-35.0) pg MCHC (31.0-37.0) g/dL RDW (11.5-15.5) % Plt Count (150-450) k/uL MPV Neutrophils % % Lymphocytes % % Monocytes % % Eosinophils % % Basophils % % Neutrophils # (1.3-7.7) k/uL Lymphocytes # (1.0-4.8) k/uL Monocytes # (0-1.0) k/uL Eosinophils # (0-0.7) k/uL Basophils # (0-0.2) k/uL Sodium 137 (137-145) mmol/L Potassium 4.0 (3.5-5.1) mmol/L Chloride 103 (98-107) mmol/L Carbon Dioxide 25 (22-30) mmol/L Anion Gap 9 mmol/L BUN 20 H (7-17) mg/dL Creatinine 0.47 L (0.52-1.04) mg/dL Est GFR (CKD-EPI)AfAm >90 (>60 ml/min/1.73 sqM) Est GFR (CKD-EPI)NonAf >90 (>60 ml/min/1.73 sqM) Glucose 83 (74-99) mg/dL Calcium 9.8 (8.4-10.2) mg/dL Magnesium 1.8 (1.6-2.3) mg/dL Total Bilirubin 0.4 (0.2-1.3) mg/dL AST 24 (14-36) U/L ALT 22 (4-34) U/L Alkaline Phosphatase 111 (38-126) U/L Total Protein 7.6 (6.3-8.2) g/dL Albumin 4.8 (3.5-5.0) g/dL Urine Color Urine Appearance (Clear) Urine pH (5.0-8.0) Ur Specific Perry (1.001-1.035) Urine Protein (Negative) Urine Glucose (UA) (Negative) Urine Ketones (Negative) Urine Blood (Negative) Urine Nitrite (Negative) Urine Bilirubin (Negative) Urine Urobilinogen (<2.0) mg/dL Ur Leukocyte Esterase (Negative) Urine RBC (0-5) /hpf Urine WBC (0-5) /hpf Ur Squamous Epith Cells (0-4) /hpf Urine Mucus (None) /hpf Urine HCG, Qual (Not Detectd) Disposition Clinical Impression: Migraine Disposition: HOME SELF-CARE Condition: Good Instructions (If sedation given, give patient instructions): Migraine Headache (ED) Additional Instructions: Return to the emergency department for any new or worsening symptoms. Recommend that you follow-up with your primary care provider for further evaluation. Prescriptions: Ketorolac [Toradol] 10 mg PO Q8HR #15 tab Is patient prescribed a controlled substance at d/c from ED?: No Referrals: None,Stated [Primary Care Provider] - 1-2 days Time of Disposition: 16:37
[2024-04-17] MEDS: ONDANSETRON 4 MG/2 ML VIAL IVP STA (15:45)
[2024-04-17] MEDS: ACETAMINOPHEN TAB 500 MG TAB PO STA (15:45)
[2024-04-17] MEDS: SODIUM CHLORIDE 0.9% 1,000 ML IV STA (15:45)
[2024-04-17 16:00] LABS: Appearance,Urine Cloudy (Clear); Bilirubin,Urine Negative (Negative); Blood,Urine Negative (Negative); Color,Urine Yellow; Glucose,Urine (UA) Negative (Negative); Ketones,Urine 1+ (Negative); Leukocyte Esterase,Urine Trace (Negative); Mucus,Urine Many /hpf; Nitrite,Urine Negative (Negative); PH, Urine 6.5 (5.0-8.0); Protein,Urine Negative (Negative); RBC,Urine 2 /hpf (0-5); Squamous Epithelial Cell,Urine 11 /hpf (0-4); Urobilinogen,Urine <2.0 mg/dL (<2.0); WBC,Urine 3 /hpf (0-5)
[2024-04-17 16:02] LABS: Basophils % (A) 0 %; Eosinophils % (A) 0 %; HGB 13.2 gm/dL (11.4-16.0); Lymphocytes # (A) 2.1 k/uL (1.0-4.8); Lymphocytes % (A) 17 %; MCH 28.3 pg (25.0-35.0); MCHC 33.1 g/dL (31.0-37.0); MCV 85.7 fL (80.0-100.0); Mean Platelet Volume 8.5; Monocytes # (A) 0.5 k/uL (0-1.0); Monocytes % (A) 4 %; Neutrophils # (A) 9.8 k/uL (1.3-7.7); Neutrophils % (A) 77 %; Platelet Count 276 k/uL (150-450); RBC 4.67 m/uL (3.80-5.40); RDW 12.8 % (11.5-15.5); WBC 12.7 k/uL (4.0-11.0)
[2024-04-17 16:25] LABS: ALT 22 U/L (4-34); AST 24 U/L (14-36); African American GFR (CKD) >90 (>60 ml/min/1.73 sqM); Albumin 4.8 g/dL (3.5-5.0); Alkaline Phosphatase 111 U/L (38-126); Anion Gap 9 mmol/L; Blood Urea Nitrogen 20 mg/dL (7-17); Calcium 9.8 mg/dL (8.4-10.2); Carbon Dioxide 25 mmol/L (22-30); Chloride 103 mmol/L (98-107); Glucose 83 mg/dL (74-99); Magnesium 1.8 mg/dL (1.6-2.3); Non-African American GFR(CKD) >90 (>60 ml/min/1.73 sqM); Sodium 137 mmol/L (137-145); Total Bilirubin 0.4 mg/dL (0.2-1.3); Total Protein 7.6 g/dL (6.3-8.2)
--- NOTE | 2024-04-17 16:25 | CT ---
EXAMINATION TYPE: CT brain wo con CT DLP: 1080.4 mGycm, Automated exposure control for dose reduction was used. DATE OF EXAM: 04/17/2024 4:17 PM COMPARISON: None. CLINICAL INDICATION: Female, 18 years old with history of NEVAREZ, visual disturbances, NEVAREZ, N/V. Visual di sturbances. TECHNIQUE: Brain: Axial CT images of the brain were obtained with coronal and sagittal reformats created and rev iewed. Contrast used: None. Oral contrast used: None. FINDINGS: Brain: Extra-axial spaces: No abnormal extra-axial fluid collections. Ventricular system: Within normal limits Cerebral parenchyma: No acute intraparenchymal hemorrhage or mass effect. The flores-white junction is well differentiated. Cerebellum: Unremarkable. Mass effect: No evidence of midline shift. Intracranial vasculature: unremarkable Soft tissues: Normal. Calvarium/osseous structures: No depressed skull fracture. Paranasal sinuses and mastoid air cells: Mild scattered paranasal sinus disease. Visualized orbits: Orbital contents are intact. IMPRESSION: No acute intracranial process.
[2024-04-17] MEDS: KETOROLAC 15 MG/ML 1 ML VIAL IVP STA (16:42)
[2024-04-17 16:48] VITALS: BP 110/74; PULSE 98
== END 2024-04-17 16:48 | disposition home or self-care (01) ==
LOC: EC 14:00
DX: G43.909 Migraine, unspecified, not intractable, without status migrainosus (principal)
CPT/HCPCS: 36415; 70450; 80053; 81001; 81025; 83735; 85025; 96361; 96374; 96375; 99284

== ENCOUNTER 2024-08-08 17:11 | Emergency (ER) | payer OTHER ==
[2024-08-08 17:26] VITALS: BP 112/73; PULSE 62; RESP 16; TEMP 98.6
== END 2024-08-08 19:33 | disposition left against medical advice (07) ==
LOC: EC 17:11
DX: Z02.83 Encounter for blood-alcohol and blood-drug test (principal)

== ENCOUNTER 2025-01-30 14:58 | Emergency (ER) | payer OTHER ==
--- NOTE | 2025-01-30 15:59 | ED ---
Recheck HPI - General Chief Complaint: Recheck/Abnormal Lab/Rx Stated Complaint: Abd pain(5 weeks preg) Time Seen by Provider: 01/30/25 15:36 Source: patient, RN notes reviewed Mode of arrival: ambulatory Limitations: no limitations - History of Present Illness Initial Comments: 19-year-old female with no reported medical conditions, [id number], presenting to emergency department referral from urgent care for concerns of fever and potential retained products after medically distortion. Patient states that she took oral medication on Sunday and transvaginal suppository on Sunday to induce a she is approximately 5 weeks . Patient states that on Sunday she began to experience sore throat, fevers, congestion, bilateral ear pain. At urgent care today patient was diagnosed with a bilateral ear infection and strep pharyngitis. Patient care was concerned that patient's urine was infected and recommended she report to emergency department to rule out potential retained products. Patient states that she has had increased vaginal bleeding however denies severe cramping, dizziness, lightheadedness. follows with Dr. Serrano. - Related Data Home Medications Medication Instructions Recorded Confirmed Pnv No.95/Ferrous Fum/Folic AC 1 tab PO DAILY 12/03/21 10/22/23 [ Multivitamin Tablet] Previous Rx's Medication Instructions Recorded Acetaminophen Tab [Tylenol] 650 mg PO Q6H PRN #30 tab 10/23/23 Ketorolac [Toradol] 10 mg PO Q8HR #15 tab 04/17/24 Allergies Allergy/AdvReac Type Severity Reaction Status Date / Time No Known Allergies Allergy Verified 01/30/25 15:30 Review of Systems ROS Statement: Those systems with pertinent positive or pertinent negative responses have been documented in the HPI. ROS Other: All systems not noted in ROS Statement are negative. Past Medical History Past Medical History: No Reported History Additional Past Medical History / Comment(s): POTS History of Any Multi-Drug Resistant Organisms: None Reported Past Surgical History: No Surgical Hx Reported Past Anesthesia/Blood Transfusion Reactions: No Reported Reaction Past Psychological History: No Psychological Hx Reported Smoking Status: Vaper Past Alcohol Use History: None Reported Past Drug Use History: None Reported - Past Family History Mother Family Medical History: No Reported History General Exam Limitations: no limitations General appearance: alert, in no apparent distress Expanded Throat exam: tonsillar erythema, tonsillomegaly, tonsillar exudate Neck exam: Present: normal inspection. Absent: tenderness, meningismus, lymphadenopathy Respiratory exam: Present: normal lung sounds bilaterally. Absent: respiratory distress, wheezes, rales, rhonchi, stridor Cardiovascular Exam: Present: regular rate, normal rhythm, normal heart sounds. Absent: systolic murmur, diastolic murmur, rubs, gallop, clicks GI/Abdominal exam: Present: soft, normal bowel sounds. Absent: distended, tenderness, guarding, rebound, rigid Extremities exam: Present: normal inspection, full ROM, normal capillary refill. Absent: tenderness, pedal edema, joint swelling, calf tenderness Back exam: Present: normal inspection. Absent: CVA tenderness (R), CVA tenderness (L) Course Vital Signs 01/30/25 01/30/25 15:23 16:02 Temperature 98.6 F 98.8 F Pulse Rate 98 95 Respiratory 18 16 Rate Blood Pressure 109/73 110/66 O2 Sat by Pulse 98 98 Oximetry Medical Decision Making - Medical Decision Making Was pt. sent in by a medical professional or institution (, PA, DIFFUSION FURNACE OPERATOR, urgent care, hospital, or group home...) When possible be specific @ -Advised by urgent care to report to emergency department for further evaluation of potential retained products of conception after medical induced on Sunday. Did you speak to anyone other than the patient for history (EMS, parent, family, police, friend...)? What history was obtained from this source @ -No Did you review nursing and triage notes (agree or disagree)? Why? @ -I reviewed and agree with nursing and triage notes Were old charts reviewed (outside hosp., previous admission, EMS record, old EKG , old radiological studies, urgent care reports/EKG's, group home records)? Report findings @ -No old charts were reviewed Differential Diagnosis (chest pain, altered mental status, abdominal pain women, abdominal pain men, vaginal bleeding, weakness, fever, dyspnea, syncope, headache, dizziness, GI bleed, back pain, seizure, CVA, palpatations, mental health, musculoskeletal)? @ -Differential Vaginal Bleeding: Spontaneous , threatened , molar , ectopic , bloody show, incompetent cervix, abruptioplacenta, placenta previa, uterine rupture, dysfunctional uterine bleeding, hemorrhage, uterine fibroids, this is not meant to be an all-inclusive list. EKG interpreted by me (3pts min.). @ -None X-rays interpreted by me (1pt min.). @ -None done CT interpreted by me (1pt min.). @ -None done U/S interpreted by me (1pt. min.). @ -Transvaginal ultrasound reveals no suspicious retained products within endometrial canal, pelvic ultrasound appears unremarkable. What testing was considered but not performed or refused? (CT, X-rays, U/S, labs)? Why? @ -None What meds were considered but not given or refused? Why? @ -None Did you discuss the management of the patient with other professionals (professionals i.e. DrTyler, PA, DIFFUSION FURNACE OPERATOR, lab, RT, psych nurse, criminal justice social worker, cloth inspector, teacher, fisheries officer, renal case manager)? Give summary @ -No Was smoking cessation discussed for >3mins.? @ -No Was critical care preformed (if so, how long)? @ -No Were there social determinants of health that impacted care today? How? (Homelessness, low income, unemployed, alcoholism, drug addiction, transportation, low edu. Level, literacy, decrease access to med. care, senior care, rehab)? @ -No Was there de-escalation of care discussed even if they declined (Discuss DNR or withdrawal of care, Hospice)? DNR status @ -No What co-morbidities impacted this encounter? (DM, HTN, Smoking, COPD, CAD, Cancer, CVA, ARF, Chemo, Hep., AIDS, mental health diagnosis, sleep apnea, morbid obesity)? @ -None Was patient admitted / discharged? Hospital course, mention meds given and route, prescriptions, significant lab abnormalities, going to OR and other pertinent info. @ -Discharge. 19-year-old female presents emergency room with referral from urgent care for concerns of potential retained products of conception. Overall patient is well-appearing initial vitals are stable. Patient is noted to have bilateral tonsillar exudates and tonsillar erythema and edema. Patient states that she was given a dose of steroids and is sent antibiotics and steroids to her pharmacy for bilateral ear infection and strep throat. Patient's abdominal examination is unremarkable. Patient noted to have a leukocytosis of 17 with left shift of chills of 14 likely secondary to mild elevation with steroid use. CMP is unremarkable. Urinalysis reveals no signs of infection with large amount of blood. Ultrasound reveals no suspicious retained products within the endometrial canal. Patient is stable for discharge instructed to pick pulling machine operator antibiotics and steroids as prescribed urgent care. Recommend follow-up with OB. Case discussed with Dr. Murrieta Undiagnosed new problem with uncertain prognosis? @ -No Drug Therapy requiring intensive monitoring for toxicity (Heparin, Nitro, Insulin, Cardizem)? @ -No Were any procedures done? @ -No Diagnosis/symptom? @ -Strep pharyngitis, history of medically induced Acute, or Chronic, or Acute on Chronic? @ -Acute Uncomplicated (without systemic symptoms) or Complicated (systemic symptoms)? @ -Uncomplicated Side effects of treatment? @ -No Exacerbation, Progression, or Severe Exacerbation? @ -No Poses a threat to life or bodily function? How? (Chest pain, [place], [place], pneumonia, PE, COPD, DKA, ARF, appy, cholecystitis, CVA, Diverticulitis, Homicidal, Suicidal, threat to staff... and all critical care pts) @ -No - Lab Data Result diagrams: 01/30/25 16:37 01/30/25 16:37 Lab Results 01/30/25 01/30/25 01/30/25 Range/Units 16:37 16:37 16:37 WBC 17.66 H (4.50-10.00) 10*3/uL RBC 4.15 (4.10-5.20) 10*6/uL Hgb 11.8 L (12.0-15.0) g/dL Hct 35.8 L (37.2-46.3) % MCV 86.3 (80.0-97.0) fL MCH 28.4 (27.0-32.0) pg MCHC 33.0 (32.0-37.0) g/dL Plt Count 256 (140-440) 10*3/uL MPV 10.9 (9.5-12.2) fL Immature Gran % (Auto) 0.5 % Neutrophils % 80.5 % Lymphocytes % 10.4 % Monocytes % 7.4 % Eosinophils % 1.0 % Basophils % 0.2 % Immature Gran # 0.08 H (0.00-0.04) 10*3/uL Neutrophils # 14.23 H (1.80-7.70) 10*3/uL Lymphocytes # 1.83 (0.90-5.00) 10*3/uL Monocytes # 1.31 H (0.20-1.00) 10*3/uL Eosinophils # 0.17 (0.04-0.35) 10*3/uL Basophils # 0.04 (0.00-0.10) 10*3/uL Sodium (137-145) mmol/L Potassium (3.5-5.1) mmol/L Chloride (98-107) mmol/L Carbon Dioxide (22-30) mmol/L Anion Gap mmol/L BUN (7-17) mg/dL Creatinine (0.52-1.04) mg/dL Est GFR (CKD-EPI)AfAm (>60 ml/min/1.73 sqM) Est GFR (CKD-EPI)NonAf (>60 ml/min/1.73 sqM) Glucose (74-99) mg/dL Calcium (8.4-10.2) mg/dL Total Bilirubin (0.2-1.3) mg/dL AST (14-36) U/L ALT (4-34) U/L Alkaline Phosphatase (38-126) U/L Total Protein (6.3-8.2) g/dL Albumin (3.5-5.0) g/dL Urine Color Colorless Urine Appearance Clear (Clear) Urine pH 6.5 (5.0-8.0) Ur Specific [place] 1.008 (1.001-1.035) Urine Protein Negative (Negative) Urine Glucose (UA) Negative (Negative) Urine Ketones 1+ H (Negative) Urine Blood Large H (Negative) Urine Nitrite Negative (Negative) Urine Bilirubin Negative (Negative) Urine Urobilinogen <2.0 (<2.0) mg/dL Ur Leukocyte Esterase Negative (Negative) Urine RBC 5 (0-5) /hpf Urine WBC 1 (0-5) /hpf Ur Squamous Epith Cells 2 (0-4) /hpf Urine Mucus Rare H (None) /hpf Urine HCG, Qual Detected (Not Detectd) 01/30/25 Range/Units 16:37 WBC (4.50-10.00) 10*3/uL RBC (4.10-5.20) 10*6/uL Hgb (12.0-15.0) g/dL Hct (37.2-46.3) % MCV (80.0-97.0) fL MCH (27.0-32.0) pg MCHC (32.0-37.0) g/dL Plt Count (140-440) 10*3/uL MPV (9.5-12.2) fL Immature Gran % (Auto) % Neutrophils % % Lymphocytes % % Monocytes % % Eosinophils % % Basophils % % Immature Gran # (0.00-0.04) 10*3/uL Neutrophils # (1.80-7.70) 10*3/uL Lymphocytes # (0.90-5.00) 10*3/uL Monocytes # (0.20-1.00) 10*3/uL Eosinophils # (0.04-0.35) 10*3/uL Basophils # (0.00-0.10) 10*3/uL Sodium 139 (137-145) mmol/L Potassium 4.3 (3.5-5.1) mmol/L Chloride 105 (98-107) mmol/L Carbon Dioxide 24 (22-30) mmol/L Anion Gap 10 mmol/L BUN 8 (7-17) mg/dL Creatinine 0.43 L (0.52-1.04) mg/dL Est GFR (CKD-EPI)AfAm >90 (>60 ml/min/1.73 sqM) Est GFR (CKD-EPI)NonAf >90 (>60 ml/min/1.73 sqM) Glucose 77 (74-99) mg/dL Calcium 9.3 (8.4-10.2) mg/dL Total Bilirubin 0.4 (0.2-1.3) mg/dL AST 22 (14-36) U/L ALT 39 H (4-34) U/L Alkaline Phosphatase 106 (38-126) U/L Total Protein 6.8 (6.3-8.2) g/dL Albumin 4.2 (3.5-5.0) g/dL Urine Color Urine Appearance (Clear) Urine pH (5.0-8.0) Ur Specific [place] (1.001-1.035) Urine Protein (Negative) Urine Glucose (UA) (Negative) Urine Ketones (Negative) Urine Blood (Negative) Urine Nitrite (Negative) Urine Bilirubin (Negative) Urine Urobilinogen (<2.0) mg/dL Ur Leukocyte Esterase (Negative) Urine RBC (0-5) /hpf Urine WBC (0-5) /hpf Ur Squamous Epith Cells (0-4) /hpf Urine Mucus (None) /hpf Urine HCG, Qual (Not Detectd) Disposition Clinical Impression: Strep pharyngitis, Induced Disposition: HOME SELF-CARE Condition: Good Instructions (If sedation given, give patient instructions): Strep Throat (ED) Additional Instructions: Please return to the Emergency Department if symptoms worsen or any other concerns. Is patient prescribed a controlled substance at d/c from ED?: No Referrals: None,Stated [Primary Care Provider] - 1-2 days Time of Disposition: 18:26
[2025-01-30 16:04] VITALS: TEMP 98.8
[2025-01-30] MEDS: SODIUM CHLORIDE 0.9% 1,000 ML IV ONE (16:37)
[2025-01-30 16:44] LABS: Basophils # (A) 0.04 10*3/uL (0.00-0.10); Basophils % (A) 0.2 %; Eosinophils # (A) 0.17 10*3/uL (0.04-0.35); HCT 35.8 % (37.2-46.3); HGB 11.8 g/dL (12.0-15.0); Lymphocytes # (A) 1.83 10*3/uL (0.90-5.00); Lymphocytes % (A) 10.4 %; MCH 28.4 pg (27.0-32.0); MCV 86.3 fL (80.0-97.0); Mean Platelet Volume 10.9 fL (9.5-12.2); Monocytes # (A) 1.31 10*3/uL (0.20-1.00); Monocytes % (A) 7.4 %; Neutrophils # (A) 14.23 10*3/uL (1.80-7.70); Neutrophils % (A) 80.5 %; Platelet Count 256 10*3/uL (140-440); RBC 4.15 10*6/uL (4.10-5.20); RDW 13.3 % (11.5-14.5); WBC 17.66 10*3/uL (4.50-10.00)
[2025-01-30 16:55] LABS: ALT 39 U/L (4-34); AST 22 U/L (14-36); African American GFR (CKD) >90 (>60 ml/min/1.73 sqM); Albumin 4.2 g/dL (3.5-5.0); Alkaline Phosphatase 106 U/L (38-126); Anion Gap 10 mmol/L; Blood Urea Nitrogen 8 mg/dL (7-17); Calcium 9.3 mg/dL (8.4-10.2); Carbon Dioxide 24 mmol/L (22-30); Chloride 105 mmol/L (98-107); Glucose 77 mg/dL (74-99); Non-African American GFR(CKD) >90 (>60 ml/min/1.73 sqM); Potassium 4.3 mmol/L (3.5-5.1); Sodium 139 mmol/L (137-145); Total Bilirubin 0.4 mg/dL (0.2-1.3); Total Protein 6.8 g/dL (6.3-8.2)
[2025-01-30 16:59] LABS: Appearance,Urine Clear (Clear); Bilirubin,Urine Negative (Negative); Blood,Urine Large (Negative); Color,Urine Colorless; Glucose,Urine (UA) Negative (Negative); Ketones,Urine 1+ (Negative); Leukocyte Esterase,Urine Negative (Negative); Mucus,Urine Rare /hpf; Nitrite,Urine Negative (Negative); PH, Urine 6.5 (5.0-8.0); Protein,Urine Negative (Negative); RBC,Urine 5 /hpf (0-5); Specific Gravity,Urine 1.008 (1.001-1.035); Squamous Epithelial Cell,Urine 2 /hpf (0-4); Urobilinogen,Urine <2.0 mg/dL (<2.0); WBC,Urine 1 /hpf (0-5)
--- NOTE | 2025-01-30 18:13 | US ---
EXAMINATION TYPE: US transvaginal DATE OF EXAM: 01/30/2025 COMPARISON: NONE CLINICAL INDICATION: Female, 19 years old with history of on Sunday, pain, r/o retained p roducts; pill on Sunday, heavy clots and bleeding same day, spotting , heavy blee ding again. R/O retained products due to irregular bleeding pattern. Pt. was 5 weeks. TECHNIQUE: Transvaginal (TV). Transabdominal grayscale sonographic images of the pelvis were acquired. Transvaginal sonographic im ages were medically necessary to better assess the following anatomy: Endometrium Doppler imaging: Color Doppler Images were obtained. Spectral doppler images were obtained. FINDINGS: Date of LMP: 12/21/24 EXAM MEASUREMENTS: Uterus: 8.5x4.9x5.7 cm Endometrial Stripe: 0.7 cm Right Ovary: 3.5x1.5x1.8 cm Left Ovary: 1.8x2.3x3.6 cm 1. Uterus: Retroverted wnl 2. Endometrium: wnl 3. Right Ovary: wnl 4. Left Ovary: wnl Spectral, color and waveform doppler imaging shows good arterial and venous flow within the ovaries ; there is no evidence for ovarian torsion. 5. Bilateral Adnexa: Obscured by overlying bowel gas 6. Posterior cul-de-sac: wnl no evidence of retained products IMPRESSION: 1. No suspicious retained products within the endometrial canal. 2. Pelvic ultrasound appears unremarkable O-RADS 2021 [email or web address], , 01/30/2025 6:10 PM
[2025-01-30 18:48] VITALS: BP 125/76; PULSE 89; RESP 18
== END 2025-01-30 18:48 | disposition home or self-care (01) ==
LOC: EC 14:58
DX: O03.9 Complete or unspecified spontaneous abortion without complication (principal); O99.511 Diseases of the respiratory system complicating pregnancy, first trimester; J02.0 Streptococcal pharyngitis; O99.331 Smoking (tobacco) complicating pregnancy, first trimester; F17.290 Nicotine dependence, other tobacco product, uncomplicated; Z3A.01 Less than 8 weeks gestation of pregnancy
CPT/HCPCS: 36415; 76830; 80053; 81001; 81025; 85025; 93975; 96360; 99284